=== PATIENT | female | born 2005 | race Caucasian/White ===

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

== ENCOUNTER 2025-04-03 03:36 | Emergency (ER) | payer SELFPAY | END 2025-04-03 04:40 | disposition home or self-care (01) | LOC: ERS 03:36 | DX: H66.92 Otitis media, unspecified, left ear (principal); R29.700 NIHSS score 0 | CPT/HCPCS: 99283 ==

== ENCOUNTER 2025-06-01 17:36 | Emergency (ER) | payer SELFPAY ==
[2025-06-01] MEDS ORDERED: Acetaminophen 500 MG TAB ONE (19:04)
== END 2025-06-01 19:15 | disposition home or self-care (01) ==
LOC: ERS 17:36
DX: J10.1 Influenza due to other identified influenza virus with other respiratory manifestations (principal)
CPT/HCPCS: 87081; 87428; 87430; 99283; Q0162